=== PATIENT | male | born 1960 | race Two or more races ===

== ENCOUNTER 2023-03-24 09:31 | Day surgery (SDC) | payer BC, OTHER ==
[~2023-03-24] VITALS: Ht 177.8 cm; Wt 96.3 kg
[2023-03-24 10:21] LABS: Urine Bacteria NONE SEEN /hpf (None Seen); Urine Blood 3+ /uL (Negative); Urine Specific Gravity 1.008 (1.001-1.035); Urine WBC 54 /hpf (0 - 3)
[2023-03-24 10:44] LABS: Basophils # (auto) 0 10 ^3/uL (0-0.2); Basophils % (auto) 0.4 % (0.0-2.0); Eosinophils # (auto) 0.1 10 ^3/uL (0-0.8); Eosinophils % (auto) 3.2 % (0.0-7.0); Hematocrit 40.5 % (41.0-53.0); Hemoglobin 13.3 g/dL (13.5-17.5); Lymphocytes # (auto) 1.3 10 ^3/uL (0.4-5.4); Lymphocytes % (auto) 32.1 % (10.0-50.0); Mean Corpuscular Hemoglobin 28.6 pg (28.0-32.0); Mean Corpuscular Hgb Conc. 32.8 g/dL (32.0-36.0); Mean Corpuscular Volume 87.4 fL (80.0-100.0); Monocytes # (auto) 0.4 10 ^3/uL (0-1.3); Monocytes % (auto) 10.9 % (0.0-12.0); Neutrophils # (auto) 2.2 10 ^3/uL (1.6-8.6); Neutrophils % (auto) 53.4 % (37.0-80.0); Nucleated Red Blood Cells % 0.2 %; Red Blood Cells 4.64 10^6/uL (4.5-5.90); White Blood Cell 4.1 10^3/uL (4.4-10.8)
[2023-03-24 11:00] LABS: Albumin 3.9 g/dL (3.4-5.0); Calcium 9.1 mg/dL (8.5-10.1); Potassium 4.5 mmol/L (3.5-5.1)
[2023-03-24 11:03] LABS: BUN/Creatinine Ratio 9.9 (10.0-20.0); Bilirubin, Total 0.6 mg/dL (0.2-1.0); Total Protein 7.1 g/dL (6.4-8.2)
[2023-03-24] MEDS ORDERED: SODIUM CHLORIDE 0.9% 1,000 ML IV ONE (11:45)
[2023-03-24] MEDS ORDERED: cefTRIAXone 1GM/50ML D5W 50 ML IV ONE (12:00)
[2023-03-24 12:27] LABS: INR 1.01 (0.9-1.15)
[2023-03-24] MEDS ORDERED: fentaNYL CITRATE 100 MCG/2 ML VL ONE (13:47)
[2023-03-24] MEDS ORDERED: MIDAZOLAM HCL 2MG/2ML 2ml VIAL (1mg/ml) ONE (13:47)
[2023-03-24] MEDS ORDERED: MEPERIDINE HCL (50 MG/ML) 1 ML VIAL ONE (13:47)
[2023-03-24] MEDS ORDERED: SUCCINYLCHOLINE CHLORIDE 20 MG/ML 10ML VIAL IV ONE (13:57)
[2023-03-24] MEDS ORDERED: ETOMIDATE (2MG/ML) 20ML VIAL IV ONE (14:39)
[2023-03-24] MEDS ORDERED: DexAMETHasone SOD PHOS 10MG/1ML VIAL INJ ONE (14:39)
[2023-03-24] MEDS ORDERED: ONDANSETRON HCL 4 MG/2 ML VIAL ONE (14:39)
[2023-03-24] MEDS ORDERED: ePHEDrine SULFATE 50 MG/ML AMP IV PRN (15:30)
[2023-03-24] MEDS ORDERED: HYDROmorphone HCL 2 MG/ML VL/or syr IV PRN (15:30)
[2023-03-24] MEDS ORDERED: LABETALOL HCL 5 MG/ML 4ML SYRINGE IV PRN (15:30)
[2023-03-24] MEDS ORDERED: ONDANSETRON HCL 4 MG/2 ML VIAL IV PRN (15:30)
[2023-03-24] MEDS ORDERED: MIDAZOLAM HCL 2MG/2ML 2ml VIAL (1mg/ml) IV PRN (15:30)
[2023-03-24] MEDS ORDERED: MORPHINE SULFATE 4 MG/ML SYR/VIAL IV PRN (15:30)
[2023-03-24 15:38] VITALS: BP 142/83
== END 2023-03-24 15:45 | disposition home or self-care (01) ==
LOC: ER 09:31 → SUR 13:10
PROVIDERS: ATTEND Urology
DX: D49.4 Neoplasm of unspecified behavior of bladder (principal); C67.2 Malignant neoplasm of lateral wall of bladder; F17.210 Nicotine dependence, cigarettes, uncomplicated; Z85.46 Personal history of malignant neoplasm of prostate; Z72.89 Other problems related to lifestyle
CPT/HCPCS: 36415; 52234; 71045; 74176; 80053; 81001; 85025; 85610; 96374; 99285; C1769; J0330; J0696; J1100; J2175; J2250; J2405; J3010; J7030

== ENCOUNTER 2023-08-22 10:16 | Inpatient (IN) | payer BC ==
[~2023-08-22] VITALS: Ht 177.8 cm; Wt 86.2 kg
[2023-08-22 11:30] LABS: Urine Bacteria NONE SEEN /hpf (None Seen); Urine Blood Negative /uL (Negative); Urine Clarity Clear (Clear); Urine Color Yellow (Yellow); Urine Hyaline Cast FEW /lpf (0 - 2); Urine Protein, UAD Negative (Negative); Urine Specific Gravity 1.022 (1.001-1.035); Urine Urobilinogen Normal (Negative); Urine WBC 2 /hpf (0 - 3)
[2023-08-22 12:00] LABS: Basophils # (auto) 0 10 ^3/uL (0-0.2); Basophils % (auto) 0.2 % (0.0-2.0); Eosinophils # (auto) 0.2 10 ^3/uL (0-0.8); Eosinophils % (auto) 3.6 % (0.0-7.0); Hematocrit 46.3 % (41.0-53.0); Hemoglobin 14.6 g/dL (13.5-17.5); Lymphocytes # (auto) 1.5 10 ^3/uL (0.4-5.4); Lymphocytes % (auto) 26.7 % (10.0-50.0); Mean Corpuscular Hemoglobin 28.3 pg (28.0-32.0); Mean Corpuscular Hgb Conc. 31.7 g/dL (32.0-36.0); Mean Corpuscular Volume 89.5 fL (80.0-100.0); Monocytes # (auto) 0.5 10 ^3/uL (0-1.3); Monocytes % (auto) 8.8 % (0.0-12.0); Neutrophils # (auto) 3.4 10 ^3/uL (1.6-8.6); Neutrophils % (auto) 60.7 % (37.0-80.0); Nucleated Red Blood Cells % 0.1 %; Red Blood Cells 5.17 10^6/uL (4.5-5.90); Red Cell Distribution Width 14.5 % (11.8-14.3); White Blood Cell 5.5 10^3/uL (4.4-10.8)
[2023-08-22 12:04] LABS: Alanine Aminotransferase 19 U/L (7-40); Albumin 4.6 g/dL (3.2-4.8); Alkaline Phosphatase 63 U/L (46-116); Anion Gap 6 (5-15); Aspartate Aminotransferase 11 U/L (13-40); BUN/Creatinine Ratio 9.2 (10.0-20.0); Bilirubin, Total 0.5 mg/dL (0.2-1.0); Blood Urea Nitrogen 10 mg/dL (9-23); Carbon Dioxide 25 mmol/L (20-30); Chloride 110 mmol/L (98-107); Glucose 93 mg/dL (74-106); Potassium 4.4 mmol/L (3.5-5.1); Sodium 141 mmol/L (136-145); Total Protein 6.8 g/dL (5.7-8.2)
[2023-08-22 12:40] LABS: Lipase 23 U/L (12-53)
[2023-08-22] MEDS ORDERED: ACETAMINOPHEN 325 MG TAB PO PRN (15:00)
[2023-08-22] MEDS ORDERED: ONDANSETRON HCL 4 MG/2 ML VIAL IV PRN (15:00)
[2023-08-22] MEDS ORDERED: GASTROGRAFIN 120 ML SOL ONE (15:53)
[2023-08-22 18:39] LABS: Erythrocyte Sedimentation Rate 3 mm/hr (0-20)
[2023-08-22] MEDS: DOCUSATE SOD 100 MG CAP PO SCH (22:00)
[2023-08-22 22:20] VITALS: BP 148/93; PULSE 66; RESP 18; TEMP 97.3; O2SAT 95
[2023-08-22] MEDS ORDERED: CIPR500T4 PO (22:23)
[2023-08-22] MEDS ORDERED: DOCU-265 PO (22:23)
[2023-08-22 22:24] VITALS: PULSE 65; PULSE 66; RESP 18; TEMP 97.5; O2SAT 95; O2SAT 98
[2023-08-23 05:00] VITALS: BP 138/91; PULSE 72; RESP 18; TEMP 97.8; O2SAT 100
[2023-08-23 08:00] VITALS: PULSE 62; RESP 18; O2SAT 94
[2023-08-23 09:05] LABS: Basophils # (auto) 0 10 ^3/uL (0-0.2); Basophils % (auto) 0.4 % (0.0-2.0); Eosinophils # (auto) 0.2 10 ^3/uL (0-0.8); Eosinophils % (auto) 4.6 % (0.0-7.0); Hematocrit 42.3 % (41.0-53.0); Hemoglobin 13.7 g/dL (13.5-17.5); Lymphocytes # (auto) 1.4 10 ^3/uL (0.4-5.4); Lymphocytes % (auto) 27.7 % (10.0-50.0); Mean Corpuscular Hemoglobin 28.1 pg (28.0-32.0); Mean Corpuscular Hgb Conc. 32.3 g/dL (32.0-36.0); Mean Corpuscular Volume 86.9 fL (80.0-100.0); Monocytes # (auto) 0.5 10 ^3/uL (0-1.3); Monocytes % (auto) 10.5 % (0.0-12.0); Neutrophils # (auto) 2.8 10 ^3/uL (1.6-8.6); Neutrophils % (auto) 56.8 % (37.0-80.0); Nucleated Red Blood Cells % 0.2 %; Red Blood Cells 4.87 10^6/uL (4.5-5.90); White Blood Cell 4.9 10^3/uL (4.4-10.8)
[2023-08-23] MEDS ORDERED: PANTOPRAZOLE 40 MG TAB PO SCH (10:00)
[2023-08-23 10:04] LABS: Alanine Aminotransferase 20 U/L (7-40); Albumin 4.3 g/dL (3.2-4.8); Alkaline Phosphatase 69 U/L (46-116); Anion Gap 8 (5-15); Aspartate Aminotransferase 12 U/L (13-40); BUN/Creatinine Ratio 11.8 (10.0-20.0); Blood Urea Nitrogen 12 mg/dL (9-23); Calcium 9.9 mg/dL (8.5-10.1); Carbon Dioxide 25 mmol/L (20-30); Chloride 107 mmol/L (98-107); Glucose 126 mg/dL (74-106); Potassium 4.1 mmol/L (3.5-5.1); Sodium 140 mmol/L (136-145); Total Protein 6.5 g/dL (5.7-8.2)
[2023-08-23] MEDS: DOCUSATE SOD 100 MG CAP PO SCH (10:24)
[2023-08-23 11:17] VITALS: BP 138/81; PULSE 67; RESP 18; TEMP 98.4; O2SAT 94
[2023-08-23] MEDS ORDERED: POLY335015 PO (14:03)
== END 2023-08-23 15:25 | disposition home or self-care (01) | DRG 392 ==
LOC: ER 10:16 → OVERFLOW 15:44 → CENTRAL 21:36
PROVIDERS: ADMIT Internal Medicine; ATTEND Student in an Organized Health Care Education/Training Program
DX: K59.00 Constipation, unspecified (principal); K92.2 Gastrointestinal hemorrhage, unspecified; R19.04 Left lower quadrant abdominal swelling, mass and lump; Z85.46 Personal history of malignant neoplasm of prostate; F17.200 Nicotine dependence, unspecified, uncomplicated
CPT/HCPCS: 36415; 74176; 74250; 80053; 81001; 82378; 83605; 83690; 84484; 85025; 85652; 86141; G0378

== ENCOUNTER 2023-09-15 12:40 | Day surgery (SDC) | payer BC ==
[2023-09-12 09:11] LABS: Basophils # (auto) 0 10 ^3/uL (0-0.2); Basophils % (auto) 0.2 % (0.0-2.0); Eosinophils # (auto) 0.2 10 ^3/uL (0-0.8); Eosinophils % (auto) 4.2 % (0.0-7.0); Hematocrit 45.3 % (41.0-53.0); Hemoglobin 14.5 g/dL (13.5-17.5); Lymphocytes # (auto) 1.5 10 ^3/uL (0.4-5.4); Lymphocytes % (auto) 36.4 % (10.0-50.0); Mean Corpuscular Hemoglobin 27.2 pg (28.0-32.0); Mean Corpuscular Volume 84.8 fL (80.0-100.0); Monocytes # (auto) 0.5 10 ^3/uL (0-1.3); Monocytes % (auto) 12.9 % (0.0-12.0); Neutrophils # (auto) 1.9 10 ^3/uL (1.6-8.6); Neutrophils % (auto) 46.3 % (37.0-80.0); Nucleated Red Blood Cells % 0.1 %; Red Blood Cells 5.34 10^6/uL (4.5-5.90); Red Cell Distribution Width 13.9 % (11.8-14.3)
[2023-09-12 09:24] LABS: INR 0.98 (0.9-1.15); Partial Thromboplastin Time 26.6 SEC (24.5-34.5); Prothrombin Time 10.3 sec (9.3-11.8)
[2023-09-12 09:58] LABS: Alanine Aminotransferase 37 U/L (7-40); Albumin 4.9 g/dL (3.2-4.8); Alkaline Phosphatase 77 U/L (46-116); Anion Gap 6 (5-15); Aspartate Aminotransferase 13 U/L (13-40); BUN/Creatinine Ratio 8.3 (10.0-20.0); Bilirubin, Total 0.7 mg/dL (0.2-1.0); Blood Urea Nitrogen 9 mg/dL (9-23); Calcium 10.4 mg/dL (8.5-10.1); Carbon Dioxide 27 mmol/L (20-30); Chloride 109 mmol/L (98-107); Glucose 98 mg/dL (74-106); Potassium 4.7 mmol/L (3.5-5.1); Sodium 142 mmol/L (136-145)
[2023-09-12 09:59] LABS: Total Protein 7.7 g/dL (5.7-8.2)
[~2023-09-15] VITALS: Ht 180.3 cm; Wt 86.2 kg
[~2023-09-15 12:40] MED LIST: DICY10CA PO; DOCU-265 PO; POLY335015 PO
[2023-09-15] MEDS ORDERED: SODIUM CHLORIDE LOCK 10 ML ONE (12:46)
[2023-09-15] MEDS ORDERED: diphenhdrAMINE HCL 50 MG/1 ML VL ONE (12:47)
[2023-09-15] MEDS ORDERED: MIDAZOLAM HCL 5 MG/ML-1ML VIAL ONE (12:47)
[2023-09-15] MEDS ORDERED: fentaNYL CITRATE 100 MCG/2 ML VL ONE ×2 (12:47→14:54)
[2023-09-15] MEDS ORDERED: DexAMETHasone SOD PHOS 10MG/1ML VIAL INJ ONE (14:54)
[2023-09-15] MEDS ORDERED: MIDAZOLAM HCL 2MG/2ML 2ml VIAL (1mg/ml) ONE (14:54)
[2023-09-15] MEDS ORDERED: PROPOFOL 10 MG/ML 20 ML IV ONE (15:15)
[2023-09-15 15:31] VITALS: PULSE 66; RESP 11; TEMP 97.9; O2SAT 97
[2023-09-15 15:52] VITALS: BP 133/76; PULSE 67; RESP 16; O2SAT 98
== END 2023-09-15 16:05 | disposition home or self-care (01) ==
LOC: GI 12:40
PROVIDERS: ATTEND Internal Medicine Gastroenterology
DX: K59.00 Constipation, unspecified (principal); R10.32 Left lower quadrant pain; K62.5 Hemorrhage of anus and rectum; K63.3 Ulcer of intestine; K64.8 Other hemorrhoids
CPT/HCPCS: 36415; 45380; 80053; 85025; 85610; 85730; J1100; J2250; J2704; J3010; J7030